=== PATIENT | female | born 1945 | race Caucasian/White ===

== ENCOUNTER → 2016-12-12 | Day surgery (SDC) | payer OTHER ==
[2016-11-19 15:44] VITALS: Ht 162.6 cm; Wt 90.9 kg
[~2016-12-12] VITALS: Ht 162.6 cm; Wt 90.9 kg
[~2016-12-12] MED LIST: ACET-1311 PO; ASPI-232 PO; ATOR10TA88 PO; GABA1CAP5 PO; LACTCAP3 PO; LIDOCAINE HCL 2% 2 ML VIAL (20MG/ML) ONE; MIRA1TAB3 PO; NAPR1TAB9 PO; OMEG10007 PO; PROB1TAB16 PO; PROPOFOL IV EMULSION 10 MG/ML 20 ML VIAL IV ONE; SERT-234 PO; SERT25TA PO; SODIUM CHLORIDE 0.9% 500ML 500 ML IV ONE; VERA240C2 PO
--- NOTE | 2016-12-12 14:37 | Discharge Instructions ---
Endoscopy Patient Instructions Date / Procedure(s) Performed Dec 12, 2016. Colonoscopy Allergy Information Coded Allergies: Sulfa Antibiotics (Verified Allergy, Mild, RASH, 12/12/16) Ciprofloxacin (Verified Allergy, Unknown, INRCREASED PAIN, 11/19/16) Meperidine (Verified Adverse Reaction, Mild, N&V, 04/18/13) N&V Discharge Date / Findings Dec 12, 2016. pancolonic diverticulosis Medication Instructions Stopped Medication(s): took ASA yesterday Restart Stopped Medication(s): Reported Home Medications Medications Dose Route/Sig Max Daily Dose Days Date Category Acidophilus (Lactobacillus) 1 Cap Cap 1 Cap PO QAM 11/19/16 Reported Aleve (Naproxen) 220 Mg Tab 220 Mg PO BID 11/19/16 Reported Lipitor (Atorvastatin Calcium) 10 Mg Tab 10 Mg PO HS 11/19/16 Reported Zoloft (Sertraline HCl) 25 Mg Tab 25 Mg PO QAM 11/19/16 Reported Myrbetriq Er (Mirabegron) 50 Mg Tab 50 Mg PO QAM 11/19/16 Reported Verapamil Hcl Er (Verapamil Hcl) 240 Mg Cap 240 Mg PO QAM 08/25/15 Reported Aspir-81 (Aspirin) 81 Mg Tab 81 Mg PO QAM 03/22/13 Reported Reported Home Medications Medications Dose Route/Sig Max Daily Dose Days Date Category Acidophilus (Lactobacillus) 1 Cap Cap 1 Cap PO QAM 11/19/16 Reported Aleve (Naproxen) 220 Mg Tab 220 Mg PO BID 11/19/16 Reported Lipitor (Atorvastatin Calcium) 10 Mg Tab 10 Mg PO HS 11/19/16 Reported Zoloft (Sertraline HCl) 25 Mg Tab 25 Mg PO QAM 11/19/16 Reported Myrbetriq Er (Mirabegron) 50 Mg Tab 50 Mg PO QAM 11/19/16 Reported Verapamil Hcl Er (Verapamil Hcl) 240 Mg Cap 240 Mg PO QAM 08/25/15 Reported Aspir-81 (Aspirin) 81 Mg Tab 81 Mg PO QAM 03/22/13 Reported Reported Home Medications Medications Dose Route/Sig Max Daily Dose Days Date Category Acidophilus (Lactobacillus) 1 Cap Cap 1 Cap PO QAM 11/19/16 Reported Aleve (Naproxen) 220 Mg Tab 220 Mg PO BID 11/19/16 Reported Lipitor (Atorvastatin Calcium) 10 Mg Tab 10 Mg PO HS 11/19/16 Reported Zoloft (Sertraline HCl) 25 Mg Tab 25 Mg PO QAM 11/19/16 Reported Myrbetriq Er (Mirabegron) 50 Mg Tab 50 Mg PO QAM 11/19/16 Reported Verapamil Hcl Er (Verapamil Hcl) 240 Mg Cap 240 Mg PO QAM 08/25/15 Reported Aspir-81 (Aspirin) 81 Mg Tab 81 Mg PO QAM 03/22/13 Reported Provider Instructions Activity Restrictions - No exercising or heavy lifting for 24 hours. - Do not drink alcohol the day of the procedure. - Do not drive a car or operate machinery until the day after the procedure. - Do not make any important decisions or sign important papers in 24 hours after the procedure. Following Day: - Return to full activity which may include returning to work/school. Diet Start your diet with liquids and light foods (jello, soup, juice, toast). Then eat your usual diet if not nauseated. Treatment For Common After Affects For mild abdominal pain, bloating, or excessive gas: - Rest - Eat lightly - Lie on right side Reported Home Medications Medications Dose Route/Sig Max Daily Dose Days Date Category Acidophilus (Lactobacillus) 1 Cap Cap 1 Cap PO QAM 11/19/16 Reported Aleve (Naproxen) 220 Mg Tab 220 Mg PO BID 11/19/16 Reported Lipitor (Atorvastatin Calcium) 10 Mg Tab 10 Mg PO HS 11/19/16 Reported Zoloft (Sertraline HCl) 25 Mg Tab 25 Mg PO QAM 11/19/16 Reported Myrbetriq Er (Mirabegron) 50 Mg Tab 50 Mg PO QAM 11/19/16 Reported Verapamil Hcl Er (Verapamil Hcl) 240 Mg Cap 240 Mg PO QAM 08/25/15 Reported Aspir-81 (Aspirin) 81 Mg Tab 81 Mg PO QAM 03/22/13 Reported Follow-Up Information Follow-up with Trudy MUNSON as scheduled Anesthesia Information What You Should Know You have had a procedure that required some medicine to reduce anxiety and discomfort. This treatment is called moderate sedation. After receiving the treatment, you may be sleepy, but you will be able to breathe on your own. The effects of the treatment may last for several hours. Follow these instructions along with Activity/Diet recommendations noted above: * Do NOT do anything where dizziness or clumsiness would be dangerous. * Rest quietly at home today, then you can be up and about tomorrow. * Have a responsible person stay with you the rest of today. * You may have had an I.V. today. If so, you may take the dressing off later today. Recommendations Call your doctor if: * Trouble breathing * Continuous vomiting for more than 24 hours * Temperature above 101 degrees * Severe abdominal pain or bloating * Pain not relieved by pain medicine ordered * There is increased drainage or redness from any incision * A large amount of rectal bleeding greater than 2-3 tablespoons. (If you had a polyp/s removed or have hemorrhoids, a small amount of blood - from the rectum is to be expected.) * You have any unanswered questions or concerns. IN THE EVENT OF A SERIOUS EMERGENCY, GO TO THE NEAREST EMERGENCY ROOM Your discharge instructions were prepared by provider Jakub Adams. Patient Instructions Signature Page Sana Vinecnt Patient (or Guardian) Signature/Date: I have read and understand the instructions given to me by my caregivers. Caregiver/RN/Doctor Signature/Date: The above-named patient and/or guardian has received patient instructions on this date. + Original Patient Signature Page (only) stays with chart. Please make copy for patient.
--- NOTE | 2016-12-12 14:58 | Endo History and Physical ---
History & Physical Date of Service: Dec 12, 2016. Chief Complaint: left lower quadrant abdominal pain Referring Physician: Trudy MUNSON History of Present Illness LLQ pain; ist colon exam; no wt loss; + constipation; no GI bleeding Past Medical History Hypertension Past Surgical History Hx Cardiac Surgery: No Hx Internal Defibrillator: No Hx Pacemaker: No Hx Abdominal Surgery: Yes (APPY, MARY) Hx of Implantable Prosthesis: No Hx Post-Op Nausea and Vomiting: No Hx Cancer Surgery: No Hx Thoracic Surgery: No Hx Orthopedic: Yes (RT ARM FX REPAIR) Hx Urinary Tract Surgery: Yes (LITHOTRIPSY) Family History None Social History Smoking Status: Former Smoker Hx Substance Use: No Hx Alcohol Use: No Allergies Coded Allergies: Sulfa Antibiotics (Verified Allergy, Mild, RASH, 12/12/16) Ciprofloxacin (Verified Allergy, Unknown, INRCREASED PAIN, 11/19/16) Meperidine (Verified Adverse Reaction, Mild, N&V, 04/18/13) N&V Current Medications Reported Home Medications Medications Dose Route/Sig Max Daily Dose Days Date Category Acidophilus (Lactobacillus) 1 Cap Cap 1 Cap PO QAM 11/19/16 Reported Aleve (Naproxen) 220 Mg Tab 220 Mg PO BID 11/19/16 Reported Lipitor (Atorvastatin Calcium) 10 Mg Tab 10 Mg PO HS 11/19/16 Reported Zoloft (Sertraline HCl) 25 Mg Tab 25 Mg PO QAM 11/19/16 Reported Myrbetriq Er (Mirabegron) 50 Mg Tab 50 Mg PO QAM 11/19/16 Reported Verapamil Hcl Er (Verapamil Hcl) 240 Mg Cap 240 Mg PO QAM 08/25/15 Reported Aspir-81 (Aspirin) 81 Mg Tab 81 Mg PO QAM 03/22/13 Reported Vital Signs Weight (Kilograms): 90.91 Height (Feet): 5 Height (Inches): 4 Date Time Temp Pulse Resp B/P Pulse Ox O2 Delivery O2 Flow Rate FiO2 12/12/16 14:25 37.2 84 20 115/88 97 Room Air Physical Exam AAo x3 Nl s1s2 Lungs CTA Abd soft ND; obese; mild LLQ tenderness without rebound - CCE Assessment and Plan colonoscopy
--- NOTE | 2016-12-12 16:09 | GI REPORT ---
Procedure Date: 12/12/2016 3:05 PM Procedure: Colonoscopy Indications: This is the patient's first colonoscopy, Abdominal pain in the left lower quadrant Medicines: Propofol per Anesthesia Complications: No immediate complications. Estimated blood loss: None. Estimated Blood Loss: Estimated blood loss: none. Procedure: Pre-Anesthesia Assessment: - Prior to the procedure, a History and Physical was performed, and patient medications and allergies were reviewed. The patient's tolerance of previous anesthesia was also reviewed. The risks and benefits of the procedure and the sedation options and risks were discussed with the patient. All questions were answered, and informed consent was obtained. Prior Anticoagulants: The patient has taken no previous anticoagulant or antiplatelet agents. ASA Grade Assessment: III - A patient with severe systemic disease. After reviewing the risks and benefits, the patient was deemed in satisfactory condition to undergo the procedure. After I obtained informed consent, the scope was passed under direct vision. Throughout the procedure, the patient's blood pressure, pulse, and oxygen saturations were monitored continuously. The scope was introduced through the anus and advanced to the cecum, identified by appendiceal orifice and ileocecal valve. The colonoscopy was performed without difficulty. The patient tolerated the procedure well. The quality of the bowel preparation was fair. Findings: The perianal and digital rectal examinations were normal. Pertinent negatives include normal sphincter tone, no palpable rectal lesions and no anal lesion or abnormality was detected. Multiple small and large-mouthed diverticula were found in the sigmoid colon. The exam was otherwise without abnormality. The retroflexed view of the distal rectum and anal verge was normal and showed no anal or rectal abnormalities. Impression: - Diverticulosis in the sigmoid colon. - The examination was otherwise normal. - The distal rectum and anal verge are normal on retroflexion view. - No specimens collected. Recommendation: - Discharge patient to home (ambulatory). - Patient has a contact number available for emergencies. The signs and symptoms of potential delayed complications were discussed with the patient. Return to normal activities tomorrow. Written discharge instructions were provided to the patient. - Advance diet as tolerated. - Continue present medications. - Return to referring physician as previously scheduled. - Consider Ct scan of abd/pelvis if not recently performed - Repeat colonoscopy in 10 years for screening purposes. MD Jakub Leong MD 12/12/2016 4:09:36 PM This report has been signed electronically. Note Initiated On: 12/12/2016 3:05 PM I attest to the content of the Intraoperative Record and orders documented therein, exceptions below
[2016-12-12 16:25] VITALS: BP 132/70; PULSE 79; O2SAT 93
--- NOTE | 2016-12-12 16:58 | Anesthesiology Progress Note ---
Anesthesia Post Op Note Date & Time Dec 12, 2016 at 16:57 Vital Signs Pain Intensity: 0 Vital Signs Past 12 Hours Date Time Temp Pulse Resp B/P Pulse Ox O2 Delivery O2 Flow Rate FiO2 12/12/16 16:25 79 20 132/70 93 Room Air 12/12/16 16:10 78 20 136/68 92 Room Air 12/12/16 15:55 84 20 110/66 96 Mask 10 12/12/16 14:25 37.2 84 20 115/88 97 Room Air Notes Mental Status: alert / awake / arousable, participated in evaluation Pt Amnestic to Procedure: Yes Nausea / Vomiting: adequately controlled Pain: adequately controlled Airway Patency, RR, SpO2: stable & adequate BP & HR: stable & adequate Hydration State: stable & adequate Anesthetic Complications: no major complications apparent
== END | disposition home or self-care (01) ==
LOC: C.GI 13:29
PROVIDERS: ATTEND Internal Medicine Gastroenterology
DX: R10.32 Left lower quadrant pain (principal); K57.30 Diverticulosis of large intestine without perforation or abscess without bleeding; Z87.891 Personal history of nicotine dependence; I10 Essential (primary) hypertension

== ENCOUNTER → 2016-12-28 | Outpatient (CLI) | payer OTHER ==
[~2016-12-28] MED LIST changes: -LIDOCAINE HCL 2% 2 ML VIAL (20MG/ML) ONE; +OPTIRAY 320 IV PRN; -PROPOFOL IV EMULSION 10 MG/ML 20 ML VIAL IV ONE; -SODIUM CHLORIDE 0.9% 500ML 500 ML IV ONE
--- NOTE | 2016-12-28 14:49 | DIAGNOSTIC IMAGING REPORT ---
ABDOMEN AND PELVIS CT WITH IV AND ORAL CONTRAST CT DOSE: 1011.79 mGy.cm HISTORY: Left lower quadrant abdominal pain. TECHNIQUE: Multiaxial CT images of the abdomen and pelvis were performed following the use of intravenous and oral contrast. COMPARISON STUDY: Abdomen and pelvis CT 06/19/2016. FINDINGS: The lung bases are clear. No pneumoperitoneum. No pneumatosis. No suspicious lytic or blastic osseous lesions. The gallbladder is surgically absent. The pancreas, spleen, and adrenal glands are unremarkable. Stable 12 mm cyst within the liver. No retroperitoneal lymphadenopathy. Tiny fat-containing umbilical hernia, unchanged. No retroperitoneal lymphadenopathy. The right kidney enhances normally. A 5 mm hypodense lesion within the left kidney is too small to characterize. The bladder, uterus, and bilateral adnexa are unremarkable. The appendix appears to be surgically absent. No renal stones or hydronephrosis. Extensive colonic diverticulosis. However, there is no pericolonic inflammatory change at this time to suggest acute diverticulitis. Mild thickening of the sigmoid colon remains unchanged and is likely due to muscular hypertrophy. IMPRESSION: 1. No significant change compared to the prior study. 2. Colonic diverticulosis. No evidence for diverticulitis. 3. No bowel wall thickening or obstruction. Electronically signed by: Kalia Grier M.D. 12/28/2016 2:47 PM Dictated Date/Time: 12/28/2016 2:38 PM
== END | disposition home or self-care (01) ==
LOC: C.CTS 13:32
PROVIDERS: ATTEND Nurse Practitioner Family
DX: R10.32 Left lower quadrant pain (principal); K57.30 Diverticulosis of large intestine without perforation or abscess without bleeding

== ENCOUNTER → 2017-01-30 | Outpatient (CLI) | payer OTHER ==
[~2017-01-30] MED LIST changes: +ATOR10TA82 PO; -ATOR10TA88 PO; -OPTIRAY 320 IV PRN
--- NOTE | 2017-01-30 14:56 | DIAGNOSTIC IMAGING REPORT ---
RIGHT FOOT MIN 3 VIEWS CLINICAL HISTORY: Right foot pain following recent fall. COMPARISON: None FINDINGS: The tarsometatarsal joints are intact. There is hallux valgus deformity. There is lateral deviation of the second and third toes. No acute fracture is identified. There is mild to moderate arthritis of the right first metatarsophalangeal joint. There is moderate right midfoot arthritis. IMPRESSION: 1. No acute fracture or dislocation of the right foot. 2. Hallux valgus performed. 3. Mild to moderate arthritis within multiple articulations of the right foot. Electronically signed by: Abdias Pennington M.D. 01/30/2017 2:55 PM Dictated Date/Time: 01/30/2017 2:52 PM
--- NOTE | 2017-01-30 15:02 | DIAGNOSTIC IMAGING REPORT ---
AP STANDING VIEW OF BOTH KNEES; 3 VIEWS RIGHT KNEE CLINICAL HISTORY: Right knee pain. FINDINGS: An AP standing view of both knees with crosstable lateral, tunnel, and sunrise views of the right knee are compared to study dated 03/16/2015. The skeletal structures are osteopenic. No fracture is seen. There is moderate to advanced tricompartmental degenerative joint space narrowing in the right knee. This is greatest at the patellofemoral articulation. There is near complete loss of the medial joint space at the patellofemoral articulation with bony sclerosis and subchondral cyst rotation seen in the medial patellar facet. No osteochondral defect is identified on the tunnel view. There are marginal osteophytes and degenerative beaking of the tibial spine. No joint effusion is seen. The overlying soft tissues are within normal limits. Survey images of the left knee on the frontal view show moderate degenerative narrowing in both the medial and lateral compartments as well as marginal osteophytes. IMPRESSION: 1. No acute bony abnormality is identified in the right knee. 2. Osteopenia and arthritic change in the right knee as above. This has not significantly changed from 03/16/2015. 3. Survey images of the left knee on the frontal view also show significant arthritic change. Electronically signed by: Luiz Borges M.D. 01/30/2017 3:01 PM Dictated Date/Time: 01/30/2017 2:58 PM
== END | disposition home or self-care (01) ==
LOC: C.RDSM 14:00
PROVIDERS: ATTEND Physician Assistant
DX: M25.561 Pain in right knee (principal); M79.671 Pain in right foot; M20.11 Hallux valgus (acquired), right foot; M85.861 Other specified disorders of bone density and structure, right lower leg

== ENCOUNTER → 2017-02-08 | Outpatient (CLI) | payer OTHER ==
--- NOTE | 2017-02-08 15:09 | DIAGNOSTIC IMAGING REPORT ---
RIGHT ANKLE MIN 3 VIEWS CLINICAL HISTORY: RIGHT ANKLE PAIN . Discussion: moderate generalized degenerative change. Tiny avulsion of the tip of the medial malleolus which is of indeterminate age. Pars planus deformity of the ankle. Small heel spur. Moderate degenerative change of the intertarsal region. COMPARISON: None. IMPRESSION: 1. Tiny avulsion tip medial malleolus of uncertain age. 2. Moderate to rather significant generalized degenerative change. Heel spur. 3. Pars planus deformity Electronically signed by: Bulmaro Leon M.D. 02/08/2017 3:07 PM Dictated Date/Time: 02/08/2017 3:05 PM
== END | disposition home or self-care (01) ==
LOC: C.RDSM 13:53
PROVIDERS: ATTEND Physician Assistant
DX: S82.51XA Displaced fracture of medial malleolus of right tibia, initial encounter for closed fracture (principal); X58.XXXA Exposure to other specified factors, initial encounter; M77.31 Calcaneal spur, right foot

== ENCOUNTER → 2017-04-12 | Outpatient (CLI) | payer OTHER ==
[~2017-04-12] MED LIST changes: +GADAVIST IV PRN
--- NOTE | 2017-04-12 13:13 | DIAGNOSTIC IMAGING REPORT ---
MRI OF THE BRAIN COMBO TRIGEMINAL NERVE PROTOCOL CLINICAL HISTORY: Right-sided head and facial pain. Gait abnormality. Tremor. Generalized weakness. COMPARISON STUDY: MRI of the brain dated 08/26/2015. TECHNIQUE: MRI of the brain was performed utilizing various T1 and T2-weighted sequences in the axial, sagittal, and coronal planes. Contrast-enhanced sequences were acquired following the administration of 9.5 cc of Gadavist. Additional high-resolution imaging was performed through the skull base both pre and post contrast to assess the trigeminal nerves. FINDINGS: Brain parenchyma: There are age-related involutional changes noting mild subcortical and periventricular microangiopathic disease. There is no hemorrhage or mass effect. There is no restricted diffusion to suggest acute ischemia. No enhancing mass lesion is identified on the postcontrast images. Hastings-white matter differentiation is preserved. No extra-axial fluid collection is seen. The cerebellar tonsils are normal in configuration. Ventricles, sulci, and cisterns: Prominent secondary to involutional change. Trigeminal nerves: The trigeminal nerves are normal in morphology and signal intensity, and are symmetric bilaterally. No abnormal enhancement is seen involving the trigeminal nerves on the postcontrast images. Pituitary and sella: Partially empty sella is incidentally noted. Intracranial vasculature: Normal flow voids are maintained at the skull base. Orbits: The bony orbits are grossly intact. Orbital contents are normal in appearance. Sinuses and mastoids: There is mild mucosal thickening with a small air-fluid level in the left maxillary antrum. Trace mucosal thickening is also seen in the ethmoid sinuses. The remaining paranasal sinuses and the mastoid air cells are clear. Calvarium: Unremarkable. Cervical cord: Partially visualized cervical spinal cord is normal in morphology and signal intensity. IMPRESSION: 1. No acute intracranial amnionic. 2. Unremarkable MRI assessment of the trigeminal nerves. Electronically signed by: Luiz Borges M.D. 04/12/2017 1:11 PM Dictated Date/Time: 04/12/2017 1:04 PM
== END | disposition home or self-care (01) ==
LOC: C.MRI 11:26
PROVIDERS: ATTEND Nurse Practitioner Family
DX: R53.1 Weakness (principal); G50.0 Trigeminal neuralgia

== ENCOUNTER → 2017-04-23 | Outpatient (CLI) | payer OTHER ==
[~2017-04-23] MED LIST changes: -GADAVIST IV PRN
--- NOTE | 2017-04-23 11:16 | DIAGNOSTIC IMAGING REPORT ---
RENAL ULTRASOUND HISTORY: Abnormal CT exam RENAL LESIONS COMPARISON: 12/28/2016 FINDINGS: Right kidney: Maximum dimension 10.7 cm. No evidence for hydronephrosis. Normal corticomedullary differentiation and cortical thickness. Left kidney: Maximum dimension 11.1 cm. No evidence for hydronephrosis. No evidence for the CT finding on this exam. Normal corticomedullary differentiation and cortical thickness. Bladder: No bladder wall thickening. The bilateral ureteral jets were identified. IMPRESSION: Normal renal ultrasound. No evidence for significant nodular pathology by ultrasound criteria. Electronically signed by: Bulmaro Leon M.D. 04/23/2017 11:15 AM Dictated Date/Time: 04/23/2017 11:13 AM
== END | disposition home or self-care (01) ==
LOC: C.ULTR 10:35
PROVIDERS: ATTEND Nurse Practitioner Family
DX: N28.9 Disorder of kidney and ureter, unspecified (principal)

== ENCOUNTER → 2017-06-18 | Outpatient (CLI) | payer OTHER ==
[~2017-06-18] MED LIST changes: -ATOR10TA82 PO; +ATOR10TA88 PO; -LACTCAP3 PO; -NAPR1TAB9 PO; -SERT25TA PO
== END | disposition home or self-care (01) ==
LOC: C.LABSPEC 16:50
PROVIDERS: ATTEND Nurse Practitioner Adult Health
DX: N39.41 Urge incontinence (principal)